=== PATIENT | female | born 1945 | race Caucasian/White ===

== ENCOUNTER 2018-08-10 15:14 | Emergency (ER) | payer OTHER ==
--- NOTE | 2018-08-10 15:38 | EDPHY ---
H & P Stated Complaint: chest tightness since last night, sob Time Seen by Provider: 08/10/18 15:19 HPI/ROS: CHIEF COMPLAINT: Chest pressure this is a 73-year-old female with a history of hypertension and GERD who presents with substernal and left chest pressure that began last night while she was at rest. This sensation persists. She states " I do not feel very good". She has some mild lightheadedness, no dizziness or fainting. There is no radiation of the pain. No nausea or vomiting. No diaphoresis. She does not feel short of breath. Her family history is positive for coronary artery disease in both parents in in her brother. She has never had a cardiac stress test. She had an echocardiogram in the remote past. She has a history of GERD for which she takes Nexium. She states that this pain does not feel like what she has experienced previously due to acid reflux. HISTORY OF PRESENT ILLNESS: REVIEW OF SYSTEMS: A ten system review of systems was performed and is negative with the exception of the items mentioned in the HPI. Past medical history: 1. Hypertension 2. GERD Past surgical history: 1. Hysterectomy 2. Oophorectomy 3. Cholecystectomy Family history: Brother of heart failure at age 52. Both parents had myocardial infarctions. Her mother at age 93 and her father of lung cancer. 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 She quit smoking 15 years ago. She rarely drinks alcohol. She lives alone with a cat and a bird. General Appearance: Alert. Vital signs reviewed. Heart rate 102. Blood pressure 182/92. Eyes: Pupils equal and round, no conjunctival injection, no discharge. Anicteric. ENT, Mouth: Mucous membranes are moist, no oropharyngeal erythema or edema. Neck: No lymphadenopathy, supple. Respiratory: Lungs are clear to auscultation; no wheezes, rales, or rhonchi. Cardiovascular: Regular rate and rhythm; no murmur, rub, or gallop. Gastrointestinal: Abdomen is soft and nontender, no masses or organomegaly, bowel sounds normal. Skin: Warm and dry, no rashes on exposed skin, normal color. Back: Nontender to palpation over the thoracolumbar spine. No CVAT. Extremities: No lower extremity edema, no calf tenderness or swelling. Neurological: Alert and oriented. Moving all four extremities easily and equally. Psychiatric: Normal affect. - Personal History Current Tetanus Diphtheria and Acellular Pertussis (TDAP): Yes - Medical/Surgical History Hx Asthma: No Hx Chronic Respiratory Disease: No Hx Diabetes: No Hx Cardiac Disease: No Hx Renal Disease: No Hx Cirrhosis: No Hx Alcoholism: No Hx HIV/AIDS: No Hx Splenectomy or Spleen Trauma: No Other PMH: HTN, - Social History Smoking Status: Former smoker Constitutional: Initial Vital Signs Temperature (C) 36.4 C 08/10/18 15:19 Heart Rate 102 H 08/10/18 15:19 Respiratory Rate 16 08/10/18 15:19 Blood Pressure 182/92 H 08/10/18 15:19 O2 Sat (%) 94 08/10/18 15:19 O2 Delivery Mode Room Air Allergies/Adverse Reactions: No Known Allergies Allergy (Unverified 08/10/18 15:37) Home Medications: Medication Instructions Recorded Norvasc 5 mg (*) 08/10/18 Omeprazole 08/10/18 Medical Decision Making - Diagnostics EKG Interpretation: 12 lead EKG is interpreted in [place] by emergency department physician. Imaging Results: Imaging Impressions Chest X-Ray 08/10/18 15:35 Impression: Clear lungs. No acute process. ED Course/Re-evaluation: 73-year-old with chest pressure that began last night. EKG shows a sinus tachycardia with a rate of 100. LAE. No acute ischemic findings. CBC, chemistries, troponin ordered. Chest x-ray ordered. Patient was re-evaluated at 4:30 p.m.. She states that her chest pressure has resolved. She received 3 baby aspirin (she had taken 1 this morning). Her blood pressure has improved. I have reviewed her labs and chest x-ray. Chest x -ray is within normal limits. Troponin is normal. Creatinine is 1.1. I reviewed all of this information with the patient. Her HEART score falls in the moderate range at 4--moderately suspicious story, age, and 2 risk factors. This gives her 12-16.6% chance of a major adverse cardiac event within the next 6 weeks. She and I discussed this study and it's results/recommendations as they relate to her. I have recommended overnight hospitalization. She understands the risks and benefits of hospitalization but chooses to return home. She is capable of making her own medical decisions and has participated in shared decision making. She understands that an acute coronary syndrome has not been ruled out. She understands that she might be at risk of heart attack and even . She has agreed to remain in the emergency department and have a repeat troponin and repeat EKG performed. These will be done at a 3 hr interval. Repeat EKG shows a sinus rhythm with a rate of 99. No acute ischemic changes. Repeat troponin is 0. These results were relayed to the patient. She is being discharged from the emergency department. She understands that she can return at any time should she have new or worsening symptoms. She is advised to continue with her medication for GERD. She knows that her blood pressures were high while she was in the department. She will have this followed by her primary care physician. Differential Diagnosis: Chest pain including but not limited to myocardial ischemia, pulmonary embolus, chest wall pain, pleural inflammation, GERD, and pulmonary infectious causes. - Data Points Laboratory Results: 08/10/18 08/10/18 08/10/18 18:33 15:42 15:42 POC Sodium 142 mEq/L mEq/L (135-145) POC Potassium 3.5 mEq/L mEq/L (3.3-5.0) POC Chloride 103.0 mEq/L mEq/L (97-110) POC Total CO2 25 mEq/L mEq/L (22-31) POC BUN 12 mg/dL mg/dL (7-23) POC Creatinine 1.1 mg/dL H mg/dL (0.6-1.0) POC Glucose 108 mg/dL H mg/dL (70-100) POC Calcium 9.7 mg/dL mg/dL (8.5-10.4) POC Troponin I 0.00 ng/mL ng/mL 0.00 ng/mL ng/mL (0.00-0.08) (0.00-0.08) Medications Given: Discontinued Medications Aspirin (Aspirin) 243 mg PO EDNOW ONE Stop: 08/10/18 16:03 Last Admin: 08/10/18 16:06 Dose: 243 mg Point of Care Test Results: CBC CBC Collection Date 08/10/18 CBC Collection Time 15:40 WBC 10.9 RBC 4.92 HGB 15.8 HCT 43.5 PLT 194 Neut # 8.2 Neut 75.4 LYMPH # 2.0 LYMPH 18.4 Other WBC # 0.7 Other WBC 6.2 MCV 88.4 Chemistry 08/10/18 08/10/18 08/10/18 18:33 15:42 15:42 POC Sodium 142 mEq/L mEq/L (135-145) POC Potassium 3.5 mEq/L mEq/L (3.3-5.0) POC Chloride 103.0 mEq/L mEq/L (97-110) POC Total CO2 25 mEq/L mEq/L (22-31) POC BUN 12 mg/dL mg/dL (7-23) POC Creatinine 1.1 mg/dL H mg/dL (0.6-1.0) POC Glucose 108 mg/dL H mg/dL (70-100) POC Calcium 9.7 mg/dL mg/dL (8.5-10.4) POC Troponin I 0.00 ng/mL ng/mL 0.00 ng/mL ng/mL (0.00-0.08) (0.00-0.08) Departure - Departure Disposition: Home, Routine, Self-Care Clinical Impression: Chest pain Qualifiers: Chest pain type: unspecified Qualified Code(s): R07.9 - Chest pain, unspecified Condition: Good Instructions: Chest Pain (ED) Additional Instructions: I am referring you to Dr. Giovanni Chacon, cardiology. Let Dr. Mosqueda know about today's visit and arrange follow up with her and with a landfill gas collection system operator (any landfill gas collection system operator or caregiver in Dr. Chacon's group is fine to see). I have made a direct referral to the cardiology group which should facilitate arranging an appointment. They might contact you, but I recommend that you call them tomorrow and let them know that you have been referred by the emergency department. Continue to take your GERD medication. You have any new symptoms or worsening chest pain please return to the emergency department. Referrals: Shae Guerrero MD [Primary Care Provider] - As per Instructions Giovanni Chacon MD [Medical Doctor] - As per Instructions
[2018-08-10] MEDS: ASPIRIN 81 MG CHEWABLE TAB PO ONE (16:06)
--- NOTE | 2018-08-10 17:32 | CPEKG ---
Test Reason : OPEN Blood Pressure : / mmHG Vent. Rate : 100 BPM Atrial Rate : 101 BPM P-R Int : 162 ms QRS Dur : 080 ms QT Int : 333 ms P-R-T Axes : 047 028 033 degrees QTc Int : 430 ms Sinus tachycardia Probable left atrial enlargement Abnormal inferior Q waves Confirmed by Apoorva Martinez ([id number]) on 08/10/2018 5:31:55 PM Referred By: Confirmed By:Apoorva Martinez
[2018-08-10 19:06] VITALS: BP 162/99
--- NOTE | 2018-08-10 19:53 | CPEKG ---
Test Reason : OPEN Blood Pressure : / mmHG Vent. Rate : 099 BPM Atrial Rate : 099 BPM P-R Int : 162 ms QRS Dur : 081 ms QT Int : 328 ms P-R-T Axes : 055 034 035 degrees QTc Int : 421 ms Sinus rhythm Probable left atrial enlargement Confirmed by Apoorva Martinez ([id number]) on 08/10/2018 7:53:00 PM Referred By: Confirmed By:Apoorva Martinez
== END 2018-08-10 19:04 | disposition home or self-care (01) ==
LOC: CED 15:14
DX: R07.9 Chest pain, unspecified (principal); R06.02 Shortness of breath; I10 Essential (primary) hypertension; K21.9 Gastro-esophageal reflux disease without esophagitis
CPT/HCPCS: 71046-PO; 80048-PO; 84484-PO